=== PATIENT | female | born 1945 | race Caucasian/White ===

== ENCOUNTER 2021-12-08 13:13 | Outpatient (CLI) | payer MEDICARE | END 2021-12-08 13:14 | disposition home or self-care (01) | LOC: CSHWCC 13:13 | PROVIDERS: ATTEND Nurse Practitioner Family | DX: L89.104 Pressure ulcer of unspecified part of back, stage 4 (principal) | CPT/HCPCS: 11042; 97607 ==

== ENCOUNTER 2021-12-22 10:38 | Outpatient (CLI) | payer MEDICARE | END 2021-12-22 10:39 | disposition home or self-care (01) | LOC: CSHWCC 10:38 | PROVIDERS: ATTEND Nurse Practitioner Family | DX: L89.104 Pressure ulcer of unspecified part of back, stage 4 (principal) | CPT/HCPCS: 11042; 97607 ==

== ENCOUNTER 2021-12-29 10:34 | Outpatient (CLI) | payer MEDICARE | END 2021-12-29 10:35 | disposition home or self-care (01) | LOC: CSHWCC 10:34 | PROVIDERS: ATTEND Nurse Practitioner Family | DX: L89.104 Pressure ulcer of unspecified part of back, stage 4 (principal) | CPT/HCPCS: 97607 ==

== ENCOUNTER 2022-01-05 10:19 | Outpatient (CLI) | payer MEDICARE | END 2022-01-05 10:20 | disposition home or self-care (01) | LOC: CSHWCC 10:19 | PROVIDERS: ATTEND Nurse Practitioner Family | DX: L89.104 Pressure ulcer of unspecified part of back, stage 4 (principal) | CPT/HCPCS: 97607 ==

== ENCOUNTER 2022-01-12 10:47 | Outpatient (CLI) | payer MEDICARE | END 2022-01-12 10:48 | disposition home or self-care (01) | LOC: CSHWCC 10:47 | PROVIDERS: ATTEND Nurse Practitioner Family | DX: L89.104 Pressure ulcer of unspecified part of back, stage 4 (principal) | CPT/HCPCS: 97607 ==

== ENCOUNTER 2022-01-19 10:13 | Outpatient (CLI) | payer MEDICARE | END 2022-01-19 10:14 | disposition home or self-care (01) | LOC: CSHWCC 10:13 | PROVIDERS: ATTEND Nurse Practitioner Family | DX: L89.104 Pressure ulcer of unspecified part of back, stage 4 (principal) | CPT/HCPCS: 97607 ==

== ENCOUNTER 2022-01-28 09:48 | Outpatient (CLI) | payer MEDICARE | END 2022-01-28 09:49 | disposition home or self-care (01) | LOC: CSHWCC 09:48 | PROVIDERS: ATTEND Nurse Practitioner Family | DX: L89.104 Pressure ulcer of unspecified part of back, stage 4 (principal) | CPT/HCPCS: 97607 ==

== ENCOUNTER 2022-02-04 10:52 | Outpatient (CLI) | payer MEDICARE | END 2022-02-04 10:53 | disposition home or self-care (01) | LOC: CSHWCC 10:52 | PROVIDERS: ATTEND Nurse Practitioner Family | DX: L89.104 Pressure ulcer of unspecified part of back, stage 4 (principal) | CPT/HCPCS: 97607 ==

== ENCOUNTER 2022-02-09 10:42 | Outpatient (CLI) | payer MEDICARE | END 2022-02-09 10:43 | disposition home or self-care (01) | LOC: CSHWCC 10:42 | PROVIDERS: ATTEND Nurse Practitioner Family | DX: L89.104 Pressure ulcer of unspecified part of back, stage 4 (principal) | CPT/HCPCS: 97607 ==

== ENCOUNTER 2022-02-16 10:23 | Outpatient (CLI) | payer MEDICARE | END 2022-02-16 10:24 | disposition home or self-care (01) | LOC: CSHWCC 10:23 | PROVIDERS: ATTEND Nurse Practitioner Family | DX: L89.104 Pressure ulcer of unspecified part of back, stage 4 (principal) | CPT/HCPCS: 97607 ==

== ENCOUNTER 2022-02-23 11:14 | Outpatient (CLI) | payer MEDICARE | END 2022-02-23 11:15 | disposition home or self-care (01) | LOC: CSHWCC 11:14 | PROVIDERS: ATTEND Nurse Practitioner Family | DX: L89.104 Pressure ulcer of unspecified part of back, stage 4 (principal) ==

== ENCOUNTER 2022-03-16 10:33 | Outpatient (CLI) | payer MEDICARE | END 2022-03-16 10:34 | disposition home or self-care (01) | LOC: CSHWCC 10:33 | PROVIDERS: ATTEND Nurse Practitioner Family | DX: L89.104 Pressure ulcer of unspecified part of back, stage 4 (principal) ==

== ENCOUNTER 2022-04-01 09:45 | Outpatient (CLI) | payer MEDICARE | END 2022-04-01 09:46 | disposition home or self-care (01) | LOC: CSHWCC 09:45 | PROVIDERS: ATTEND Nurse Practitioner Family | DX: L89.104 Pressure ulcer of unspecified part of back, stage 4 (principal) ==

== ENCOUNTER 2022-04-13 13:58 | Outpatient (CLI) | payer MEDICARE | END 2022-04-13 13:59 | disposition home or self-care (01) | LOC: CSHWCC 13:58 | PROVIDERS: ATTEND Nurse Practitioner Family | DX: L89.104 Pressure ulcer of unspecified part of back, stage 4 (principal) | CPT/HCPCS: 97139; G0463; 99213 ==

== ENCOUNTER 2022-04-27 13:41 | Outpatient (CLI) | payer MEDICARE | END 2022-04-27 13:42 | disposition home or self-care (01) | LOC: CSHWCC 13:41 | PROVIDERS: ATTEND Nurse Practitioner Family | DX: L89.104 Pressure ulcer of unspecified part of back, stage 4 (principal) | CPT/HCPCS: 87070; 87205; 97139; G0463; 99213 ==

== ENCOUNTER 2022-05-13 14:22 | Outpatient (CLI) | payer MEDICARE | END 2022-05-13 14:23 | disposition home or self-care (01) | LOC: CSHWCC 14:22 | PROVIDERS: ATTEND Preventive Medicine Undersea and Hyperbaric Medicine | DX: L89.104 Pressure ulcer of unspecified part of back, stage 4 (principal); S91.309D Unspecified open wound, unspecified foot, subsequent encounter | CPT/HCPCS: 97607 ==

== ENCOUNTER 2022-05-20 15:06 | Outpatient (CLI) | payer MEDICARE | END 2022-05-20 15:07 | disposition home or self-care (01) | LOC: CSHWCC 15:06 | PROVIDERS: ATTEND Preventive Medicine Undersea and Hyperbaric Medicine | DX: L89.104 Pressure ulcer of unspecified part of back, stage 4 (principal) | CPT/HCPCS: 97607 ==

== ENCOUNTER 2022-05-28 14:32 | Outpatient (CLI) | payer MEDICARE | END 2022-05-28 14:33 | disposition home or self-care (01) | LOC: CSHWCC 14:32 | PROVIDERS: ATTEND Preventive Medicine Undersea and Hyperbaric Medicine | DX: L89.104 Pressure ulcer of unspecified part of back, stage 4 (principal) | CPT/HCPCS: 11042; 87070; 87205; 97139; G0463; 99212 ==

== ENCOUNTER 2022-06-10 10:40 | Outpatient (CLI) | payer MEDICARE | END 2022-06-10 10:41 | disposition home or self-care (01) | LOC: CSHWCC 10:40 | PROVIDERS: ATTEND Preventive Medicine Undersea and Hyperbaric Medicine | DX: L89.104 Pressure ulcer of unspecified part of back, stage 4 (principal) ==